=== PATIENT | female | born 1960 | race Caucasian/White ===

== ENCOUNTER → 2019-01-31 15:17 | Outpatient (CLI) | payer OTHER, SELFPAY ==
--- NOTE | 2019-01-31 | DI.US.S_ITS ---
PROCEDURE: US CAROTID DOPPLER BI INDICATIONS: GENERALIZED ATHEROSCLEROSIS TECHNIQUE: Color and pulse Doppler interrogation was performed of both carotid systems, with image documentation and velocity measurements. COMPARISON: None. FINDINGS: Stenosis calculations are based on SRU ([employer] in [employer]) criteria. Right side: Brachial blood pressure: 155/95 mm Hg. Common carotid artery peak systolic velocity: 69 cm/sec. Internal carotid artery peak systolic velocity: 76 cm/sec. Internal carotid artery end diastolic velocity: 25 cm/sec. External carotid artery peak systolic velocity: 204 cm/sec. ICA/CCA peak systolic ratio: 1.11. Mills scale imaging description: There are scattered atherosclerotic plaques identified in the carotid bifurcation. Percent internal carotid artery stenosis: Less than 50% stenosis. Vertebral artery: Flow direction is antegrade. Left side: Brachial blood pressure: 151/94 mm Hg. Common carotid artery peak systolic velocity: 61 cm/sec. Internal carotid artery peak systolic velocity: 73 cm/sec. Internal carotid artery end diastolic velocity: 27 cm/sec. External carotid artery peak systolic velocity: 219 cm/sec. ICA/CCA peak systolic ratio: 1.33. Mills scale imaging description: Mild scattered atherosclerotic plaque identified in the carotid bifurcation. Percent internal carotid artery stenosis: Less than 50% stenosis.. Vertebral artery: Flow direction is antegrade. IMPRESSION: Atherosclerosis identified at the bilateral carotid bifurcation with less than 50% stenosis identified in the bilateral internal carotid arteries. Dictated by: Zac Mcclain M.D. on 01/31/2019 at 17:36 Approved by: Zac Mcclain M.D. on 01/31/2019 at 17:40
== END ==
PROVIDERS: Visit Provider Hospitalist
DX: I70.91 Generalized atherosclerosis (principal); I65.23 Occlusion and stenosis of bilateral carotid arteries
CPT/HCPCS: 93880